=== PATIENT | male | born 1965 | race Caucasian/White ===

== ENCOUNTER 2019-11-04 18:28 | Emergency (ER) | payer OTHER, SELFPAY ==
[2019-11-04 18:42] VITALS: BP 152/93; PULSE 71; RESP 18; TEMP 36.6; O2SAT 99
--- NOTE | 2019-11-04 18:57 | ED.SKABFB ---
HPI - Skin/Abscess/Foreign Bdy General Chief complaint: Skin/Abscess/Foreign Body Stated complaint: Sore on left upper chest Time Seen by Provider: 11/04/19 18:53 Source: patient and RN notes reviewed Mode of arrival: ambulatory Limitations: no limitations History of Present Illness HPI narrative: 53-year-old male presents with concern for a bug bite to his chest. Reports he sustained the bite on Sunday, noticed it was a small itchy red bump, noticed yesterday it became larger, redder and the redness was spreading. He denies fever, malaise, body aches. Denies any known contacts with tick, did not pull a tick off of his chest. Reports he was also using a hot tub while on vacation over the weekend. MD complaint: rash Related Data Home Medications Medication Instructions Recorded Confirmed celecoxib 200 mg PO DAILY 11/04/19 11/04/19 esomeprazole magnesium 20 mg PO DAILY 11/04/19 11/04/19 Allergies Allergy/AdvReac Type Severity Reaction Status Date / Time No Known Allergies Allergy Verified 11/04/19 18:49 Review of Systems Review of Systems: Narrative: CONSTITUTIONAL: Denies malaise, chills, sweats, or fever. ENT: Denies swollen lips, swollen tongue, difficulty swallowing CARDIOVASCULAR: Denies chest pain, palpitations, or edema. RESPIRATORY: Denies cough or dyspnea. GASTROINTESTINAL: Denies abdominal pain, nausea, vomiting, diarrhea SKIN: Reports red, swollen area on his chest that is occasionally itchy, tender MUSCULOSKELETAL: Denies myalgia. NEUROLOGIC: Denies numbness, weakness All systems reviewed & are unremarkable except as noted in HPI and below PMFSH Comments At time of signature, agree with nursing past medical, surgical, social and family history. There is no relevant family history pertinent to the presenting complaint Exam Narrative: Exam Narrative: GENERAL: Well-appearing, well-nourished, and in no acute distress. HEAD: Normocephalic EYES: PERRLA, conjunctivae clear ENT: Mucous membranes moist. NECK: Supple. CHEST: No respiratory distress. Clear to auscultation. No bony deformities, no asymmetry. Speaks in full sentences. HEART: Regular rate and rhythm. No murmur heard. Normal peripheral pulses. SKIN: Warm, dry. Approximately 6 cm x 3 cm area of erythema, induration, warmth noted to the left chest above the left nipple NEURO: Alert and oriented x3. PSYCH: Normal mood and affect Course Course Emergency Course: Patient is aware of diagnosis, understands and agrees to treatment plan. Anticipatory guidance given. Patient agrees to follow-up as directed and is aware of reasons to seek care at the emergency department. Portions of this record may have been created with voice recognition software Vital Signs Vital signs: Vital Signs Temperature 97.8 F 11/04/19 18:42 Pulse Rate 71 11/04/19 18:42 Respiratory Rate 18 11/04/19 18:42 Blood Pressure 152/93 H 11/04/19 18:42 Pulse Oximetry 99 11/04/19 18:42 Temperature 97.8 F 11/04/19 18:42 Pulse Rate 71 11/04/19 18:42 Respiratory Rate 18 11/04/19 18:42 Blood Pressure 152/93 H 11/04/19 18:42 Pulse Oximetry 99 11/04/19 18:42 Reviewed. Pt has been instructed to follow up with his primary care provider within the next week regarding his elevated blood pressure today. MDM - Skin/Abscess/Foreign Bdy MDM Narrative Medical decision making narrative: Does not appear at this time to be erythema multiforme, bullous, SJS, TEN; no evidence at this time to suggest RMSF, endocarditis or Lyme disease; patient looks well, nontoxic and is tolerating oral intake; no neurologic signs or symptoms; no headache, photophobia or neck pain; afebrile; appropriate for initial outpatient treatment; discussed the importance of follow-up, patient agrees; question, viral exanthema, contact dermatitis, allergic dermatitis, eczema, urticaria, insect bite, cellulitis. No soft palate or uvula edema, no tongue, lip edema or other mucosal involvement, no respir
== END 2019-11-04 19:06 | disposition home or self-care (01) ==
PROVIDERS: Emergency Provider Nurse Practitioner; PCP Internal Medicine
DX: L03.313 Cellulitis of chest wall (principal); K21.9 Gastro-esophageal reflux disease without esophagitis; M19.90 Unspecified osteoarthritis, unspecified site
CPT/HCPCS: 99213; G0463

== ENCOUNTER 2020-02-10 09:55 | Emergency (ER) | payer OTHER, SELFPAY ==
[2020-02-10 10:00] VITALS: BP 154/100; PULSE 75; RESP 18; TEMP 36.3; O2SAT 98
--- NOTE | 2020-02-10 10:08 | ED.NAVMDI ---
HPI - Nausea/Vomiting/Diarrhea General Chief complaint: Abdominal Pain Stated complaint: dizzy/nausea/ear ringing Source: patient Mode of arrival: ambulatory Limitations: no limitations History of Present Illness HPI Narrative: Patient is a 54-year-old male who presents with multiple complaints. Patient reports dizziness and lightheaded x1 to 2 days. Reports nausea and vomiting x1 this a.m. He reports abdominal pain for the past 3 days. Reports a history of labyrinthitis, but reports it has not happened in many years. He denies chest pain or shortness of breath. He denies taking [id number] medications for relief. Related Data Home Medications Medication Instructions Recorded Confirmed celecoxib 200 mg PO DAILY 11/04/19 11/04/19 esomeprazole magnesium 20 mg PO DAILY 11/04/19 11/04/19 folic acid 1 mg PO DAILY 02/10/20 02/10/20 methotrexate sodium 2.5 mg PO WEEKLY 02/10/20 02/10/20 Allergies Allergy/AdvReac Type Severity Reaction Status Date / Time No Known Allergies Allergy Verified 11/04/19 18:49 Review of Systems Review of Systems: Narrative: CONSTITUTIONAL: Denies fever, chills, or sweats. EYES: Denies visual changes, redness, or discharge. ENT: Denies rhinorrhea, congestion, sore throat, or otalgia. CARDIOVASCULAR: Denies chest pain, palpitations, or edema. RESPIRATORY: Denies cough or dyspnea. GASTROINTESTINAL: Reports abdominal pain, nausea, and vomiting GENITOURINARY: Denies dysuria or hematuria. SKIN: Denies rash or itching. MUSCULOSKELETAL: Denies back pain, joint pain, or myalgia. NEUROLOGIC: Reports dizziness and mild headache PSYCHIATRIC: Denies anxiety or depression. [facility] Past Medical History Medical History Arthritis GERD (gastroesophageal reflux disease) Labyrinthitis Surgical History Surgical History (Updated 02/10/20 @ 10:21 by VELASQUEZ Land) No significant past surgical history Family History Family History Other Heart disease Social History Social History (Updated 02/10/20 @ 10:21 by VELASQUEZ Land) Smoking status: Never smoker Alcohol intake: current Alcohol use details: Occasional Substance use: never Exam Narrative: Exam Narrative: GENERAL: Well-appearing, well-nourished, and in no acute distress. Slightly pale. HEAD: Normocephalic, atraumatic. EYES: Conjunctiva are normal. ENT: Mucous membranes pink and moist. TMs normal bilaterally. Throat normal. Uvula midline. NECK: AROM. Supple. No lymphadenopathy. CHEST: No respiratory distress. HEART: Regular rate and rhythm. No murmur appreciated. Normal peripheral pulses. GI: Soft, nontender without rebound, or guarding. No distention. EXTREMITIES: Normal range of motion. SKIN: Warm, dry, no rash. NEURO: No focal deficits. Alert and oriented x3. Gait steady. PSYCH: Normal affect. No signs of depression or anxiety. Course Transfer Transfered to: [facility] ([place]) Transportation: Other (Patient reports will drive him, refuses EMS transfer. Patient aware to go immediately to the emergency department.) Transfer rationale: Higher level care Accepting physician: Dr. Traylor Transfer comments: Report given to JENNIE Canela. MDM - Nausea/Vomiting/Diarrhea MDM Narrative Medical decision making narrative: Patient's dizziness could be caused by labyrinthitis, however with patient symptoms, further evaluation and possible diagnostic testing is warranted. Patient to be sent to [facility] at this time. Patient continues to feel dizzy, will transport. Refuses EMS transport at this time. Critical Care Time Critical Care Time Critical Care Time: No Discharge Plan Discharge Clinical Impression: Dizziness Patient Disposition: Acute Care Hospital Condition: Stable Prescriptions: No Action celecoxib 200 mg capsule 200 mg PO BID RF: 0 es
== END 2020-02-10 10:25 | disposition short-term general hospital (02) ==
PROVIDERS: Emergency Provider Nurse Practitioner; PCP Internal Medicine
DX: R42 Dizziness and giddiness (principal); M19.90 Unspecified osteoarthritis, unspecified site; K21.9 Gastro-esophageal reflux disease without esophagitis
CPT/HCPCS: 99212; G0463

== ENCOUNTER 2023-04-08 16:45 | Emergency (ER) | payer BC, SELFPAY ==
[2023-04-08 16:52] VITALS: BP 132/95; PULSE 96; RESP 20; TEMP 36.4; O2SAT 98
--- NOTE | 2023-04-08 16:58 | ECG_ITS ---
Measurements Intervals [place] Rate: 85 P: 58 W[place]: 164 QRS: -2 QRSD: 101 T: 53 QT: 350 QTc: 418 Interpretive Statements SINUS RHYTHM BASELINE ARTIFACT- V1 NORMAL ECG NO PREVIOUS ECG AVAILABLE FOR COMPARISON Electronically Signed On 04-09-2023 7:19:24 ANALYTICAL TECHNICIAN by Sam Parsons D.O.
--- NOTE | 2023-04-08 17:19 | ED.GENADULT ---
HPI - General Adult General Chief complaint: Upper Respiratory Infection Stated complaint: shortness of breath,upper chest pain Time Seen by Provider: 04/08/23 17:10 Source: patient, RN notes reviewed and old records reviewed Mode of arrival: ambulatory Limitations: no limitations History of Present Illness HPI narrative: 57-year-old male who presents to [facility] with complaints of having the past month intermittent midsternal chest pain and some shortness of breath with exertion. Patient denies any history of recent chest congestion or cough. States this morning he was changing the sheets on his son's beds and he became very short of breath with that activity but it then did resolve. Patient does have history of hypertension and also psoriatic arthritis and sees arthritis specialist in [place] and is presently on Humira and methotrexate. Patient is a nonsmoker, rare alcohol, and no illicit drugs, does state that brother had AK before age of 50. Patient reports no present pain. MD complaint: Shortness of breath and midsternal chest pain intermittently for 1 month Onset (ago): month(s) (Month intermittent) Location: chest Radiation: non-radiation Severity scale (1-10): 4 Quality: dull Treatments prior to arrival: none Related Data Home Medications Medication Instructions Recorded Confirmed celecoxib 200 mg capsule 200 mg PO BID 11/04/19 02/10/20 esomeprazole magnesium 20 mg 20 mg PO DAILY 11/04/19 02/10/20 capsule,delayed release folic acid 1 mg tablet 1 mg PO DAILY 02/10/20 02/10/20 methotrexate sodium 2.5 mg tablet 2.5 mg PO WEEKLY 02/10/20 02/10/20 adalimumab 40 mg/0.4 mL mg subcut 04/08/23 subcutaneous pen kit (Humira(CF) Pen) hydrochlorothiazide 25 mg tablet mg 04/08/23 lisinopril 10 mg tablet mg 04/08/23 Allergies Allergy/AdvReac Type Severity Reaction Status Date / Time No Known Allergies Allergy Verified 11/04/19 18:49 Review of Systems Review of Systems: CONSTITUTIONAL: Denies fever, chills, or sweats. EYES: Denies visual changes, redness, or discharge. ENT: Denies rhinorrhea, congestion, sore throat, or otalgia. CARDIOVASCULAR: Reports intermittent mid sternal chest pain,no palpitations, or edema. RESPIRATORY: Denies cough, states dyspnea at times with exertion GASTROINTESTINAL: Denies abdominal pain, nausea, vomiting, or diarrhea. GENITOURINARY: Denies dysuria or hematuria. SKIN: Denies rash or itching. MUSCULOSKELETAL: Denies back pain, joint pain, or myalgia. NEUROLOGIC: Denies headache, numbness, or weakness. PSYCHIATRIC: Denies anxiety or depression. All systems reviewed & are unremarkable except as noted in HPI and below PMFSH Past Medical History Medical History (Updated 04/09/23 @ 08:44 by Maryann Alas NP) Arthritis GERD (gastroesophageal reflux disease) Hx of tinnitus Hypertension Labyrinthitis Surgical History Surgical History No significant past surgical history Family History Family History Other Heart disease Social History Social History Smoking status: Never smoker Alcohol intake: current Alcohol use details: Occasional Substance use: never Comments At time of signature, agree with nursing past medical, surgical, social and family history. There is no relevant family history pertinent to the presenting complaint Exam Narrative: GENERAL: Well-appearing, well-nourished, and in no present distress. HEAD: Normocephalic, atraumatic. EYES: PERRLA and EOMI. ENT: Nares clear, no rhinorrhea or epistaxis. Mucous membranes moist.TM's normal, throat pink with no edema NECK: Supple. no lymphadenopathy CHEST: Clear to auscultation. No respiratory distress.SAO2 98% on room air, denies any chest pain or dyspnea at this time HEART: Regular rate and rhythm. No murmur heard. Normal per
== END 2023-04-08 17:40 | disposition short-term general hospital (02) ==
PROVIDERS: Emergency Provider Registered Nurse; PCP Internal Medicine
DX: R07.9 Chest pain, unspecified (principal); R06.09 Other forms of dyspnea; M19.90 Unspecified osteoarthritis, unspecified site; K21.9 Gastro-esophageal reflux disease without esophagitis; I10 Essential (primary) hypertension
CPT/HCPCS: 93005; 99203; G0463

== ENCOUNTER 2023-06-09 13:44 | Emergency (ER) | payer BC, SELFPAY ==
[2023-06-09 13:51] VITALS: BP 117/82; PULSE 77; RESP 20; TEMP 36.8; O2SAT 100
--- NOTE | 2023-06-09 14:18 | ED.EYEPROB ---
HPI - Eye Problem General Chief complaint: Eye Problems Stated complaint: Left Eye Problem Time Seen by Provider: 06/09/23 14:18 Source: patient, RN notes reviewed and old records reviewed Mode of arrival: ambulatory Limitations: no limitations History of Present Illness HPI Narrative: 57-year-old male to [facility] for complaint of single lesion on left upper outer eyelid for 2 weeks. Patient denies pain, visual changes, headaches, urticaria. Related Data Home Medications Medication Instructions Recorded Confirmed celecoxib 200 mg capsule 200 mg PO BID 11/04/19 02/10/20 esomeprazole magnesium 20 mg 20 mg PO DAILY 11/04/19 02/10/20 capsule,delayed release folic acid 1 mg tablet 1 mg PO DAILY 02/10/20 02/10/20 methotrexate sodium 2.5 mg tablet 2.5 mg PO WEEKLY 02/10/20 02/10/20 adalimumab 40 mg/0.4 mL mg subcut 04/08/23 subcutaneous pen kit (Humira(CF) Pen) hydrochlorothiazide 25 mg tablet mg 04/08/23 lisinopril 10 mg tablet mg 04/08/23 amlodipine 10 mg tablet mg 06/09/23 06/09/23 Allergies Allergy/AdvReac Type Severity Reaction Status Date / Time No Known Allergies Allergy Verified 06/09/23 13:46 Review of Systems Review of Systems: All systems reviewed & are unremarkable except as noted in HPI and below Constitutional: Constitutional: Reports no additional constitutional complaints Eyes: Eyes: Reports no additional eye complaints, Denies blind spots, Denies blurry vision, Denies change in vision, Denies itchy eyes, Denies loss of vision and Denies eye pain ENT: Reports system reviewed and no additional complaints, except as documented Cardiovascular: Cardiovascular: Reports no additional cardiovascular complaints, Denies chest pain and Denies dyspnea Respiratory: Respiratory: Reports no additional respiratory complaints, Denies cough and Denies dyspnea Musculoskeletal: Musculoskeletal: Reports no additional musculoskeletal complaints Integumentary/Breasts: Skin/Breast: Reports new lesions ( single lesion left upper outer left eyelid) Neurologic: Reports system reviewed and no additional complaints, except as documented Psychiatric: Psychiatric: Reports no additional psychiatric complaints [facility] Past Medical History Medical History (Updated 06/09/23 @ 14:30 by Jie Mcgee APRN) Arthritis GERD (gastroesophageal reflux disease) Hx of tinnitus Hypertension Labyrinthitis Surgical History Surgical History No significant past surgical history Family History Family History Other Heart disease Social History Social History Smoking status: Never smoker Alcohol intake: current Alcohol use details: Occasional Substance use: never Comments At the time of my signature, I reviewed and agree with the nursing past medical, surgical, social, and family history. There is no relevant family history pertinent to the patient complaint. Exam Const: General: cooperative, healthy appearing, comfortable, no acute distress, alert and well nourished Nutritional Appearance: well nourished Orientation/consciousness: patient oriented x3 Limitations: no limitations HENMT: Head: normal to inspection Ears: external ears normal Face/Nose/Sinus: Normal external nose present, Normal nares present, normal facial exam, No erythema and No edema Face and sinus: normal facial exam, no erythema and no edema Mouth: Yes Normal oral and palatal mucosa present Eyes: General: appearance normal, both eyes and all related structures Eyelids: eyelid abnormality left upper eyelid ( single lesion; dry, flaky) other; without swelling and nontender Neck: Neck: normal visual inspection, full ROM and no meningeal signs Lymphatic: no lymphadenopathy noted and no lymphedema noted Chest: Chest palpation & inspection: normal inspection o
== END 2023-06-09 14:33 | disposition home or self-care (01) ==
PROVIDERS: Emergency Provider Nurse Practitioner Family; PCP Internal Medicine
DX: H02.9 Unspecified disorder of eyelid (principal); M19.90 Unspecified osteoarthritis, unspecified site; K21.9 Gastro-esophageal reflux disease without esophagitis; I10 Essential (primary) hypertension
CPT/HCPCS: 99213; G0463